=== PATIENT | female | born 1980 | race Caucasian/White ===

== ENCOUNTER → 2016-08-13 | Outpatient (CLI) | payer BC ==
[~2016-08-13] MED LIST: CYM60 PO; LEVOTAB3 PO
[2016-08-13 18:29] LABS: URINE APPEARANCE CLEAR (CLEAR); URINE BILIRUBIN NEG (NEG); URINE COLOR YELLOW; URINE NITRITE NEG (NEG); URINE SPECIFIC GRAVITY 1.012 (1.000-1.030); UROBILINOGEN NEG (NEG)
[2016-08-13 18:37] LABS: MANUAL MICROSCOPIC REQUIRED? NO; REVIEW REQ? NO
== END | disposition home or self-care (01) ==
LOC: C.LABSPEC 17:46
PROVIDERS: ATTEND Obstetrics & Gynecology
DX: O09.519 Supervision of elderly primigravida, unspecified trimester (principal); Z3A.00 Weeks of gestation of pregnancy not specified

== ENCOUNTER → 2016-08-21 | Outpatient (CLI) | payer BC | END | disposition home or self-care (01) | LOC: C.PAPS 08:47 | PROVIDERS: ATTEND Obstetrics & Gynecology | DX: Z01.419 Encounter for gynecological examination (general) (routine) without abnormal findings (principal) ==

== ENCOUNTER → 2016-08-21 | Outpatient (CLI) | payer BC ==
[2016-08-25 10:08] LABS: CHLAMYDIA TRACH RNA*** NOT DETECTED (NOT DETECTED); GC (NEIS GONORRHOEAE)RNA** NOT DETECTED (NOT DETECTED)
== END | disposition home or self-care (01) ==
LOC: C.LABSPEC 17:45
PROVIDERS: ATTEND Obstetrics & Gynecology
DX: O09.519 Supervision of elderly primigravida, unspecified trimester (principal); Z3A.00 Weeks of gestation of pregnancy not specified

== ENCOUNTER → 2016-08-21 | Outpatient (CLI) | payer BC ==
[2016-08-21 17:29] LABS: BASO % 0.4 %; BASO ABS # 0.03 K/uL (0-0.2); COMPLETE YES; EOS % 1.8 %; HEMATOCRIT 34.6 % (37-47); IG% 0.2 %; LYMPH ABS # 1.81 K/uL (1.2-3.4); MEAN CELL VOLUME 88.9 fL (80-100); MEAN CORPUSCULAR HEMOGLOBIN 30.6 pg (25-34); MEAN CORPUSCULAR HGB CONC 34.4 g/dl (32-36); MEAN PLATELET VOLUME 9.5 fL (7.4-10.4); MONO % 6.9 %; NEUT % 68.7 %; PLATELET COUNT 275 K/uL (130-400); RED BLOOD COUNT 3.89 M/uL (4.2-5.4); WHITE BLOOD COUNT 8.21 K/uL (4.8-10.8)
== END | disposition home or self-care (01) ==
LOC: C.LAB1850 16:43
PROVIDERS: ATTEND Obstetrics & Gynecology
DX: O09.519 Supervision of elderly primigravida, unspecified trimester (principal); Z3A.00 Weeks of gestation of pregnancy not specified

== ENCOUNTER → 2016-10-23 | Outpatient (CLI) | payer BC ==
[2016-10-23 18:19] LABS: GTGD 50 Grams
[2016-10-27 14:39] LABS: AFP CONCENTRATION 25.3 NG/ML; AFP MULTIPLE OF MEDIAN 0.65; AFPTS GESTATIONAL AGE 17.9 WEEKS; AFPTS INSULIN DEP DIABETIC? NO; AFPTS MATERNAL WT 166 LBS; ALPHA-FETOPROTEIN RACE CAUCASIAN=W; HISTORY OF NTD NO; REPEAT SAMPLE? NO
== END | disposition home or self-care (01) ==
LOC: C.LAB 17:18
PROVIDERS: ATTEND Obstetrics & Gynecology
DX: O09.511 Supervision of elderly primigravida, first trimester (principal); Z3A.00 Weeks of gestation of pregnancy not specified

== ENCOUNTER → 2017-01-05 | Outpatient (CLI) | payer BC ==
[2017-01-05 18:02] LABS: HEMATOCRIT 31.7 % (37-47)
[2017-01-05 18:28] LABS: GTGD 50 Grams
[2017-01-05 18:36] LABS: URINE APPEARANCE CLEAR (CLEAR); URINE BILIRUBIN NEG (NEG); URINE COLOR YELLOW; URINE NITRITE NEG (NEG); URINE SPECIFIC GRAVITY 1.014 (1.000-1.030); UROBILINOGEN NEG (NEG)
[2017-01-05 18:37] LABS: MANUAL MICROSCOPIC REQUIRED? NO; REVIEW REQ? NO
== END | disposition home or self-care (01) ==
LOC: C.LAB1850 17:06
PROVIDERS: ATTEND Obstetrics & Gynecology
DX: O09.513 Supervision of elderly primigravida, third trimester (principal); Z3A.00 Weeks of gestation of pregnancy not specified

== ENCOUNTER → 2017-02-27 | Outpatient (CLI) | payer BC | END | disposition home or self-care (01) | LOC: C.LABSPEC 17:28 | PROVIDERS: ATTEND Obstetrics & Gynecology | DX: O09.513 Supervision of elderly primigravida, third trimester (principal); Z3A.00 Weeks of gestation of pregnancy not specified ==

== ENCOUNTER 2017-03-20 05:33 | Inpatient (IN) | payer BC ==
[2017-03-19 15:01] VITALS: BMI 35.0
--- NOTE | 2017-03-19 15:10 | PAT Medication Instructions ---
Service Date Mar 19, 2017. Current Home Medication List Ferrous Sulfate (Iron (Ferrous Sulfate)), Unknown Dose PO QAM Multivit/Min/Iron/Fol Ac/Pren ( Vitamin), 1 TAB PO QAM [essential oil ], Unknown Dose UD Medication Instructions For Your Scheduled Surgery - Hold the following medications the morning of surgery: Ferrous Sulfate (Iron (Ferrous Sulfate)), Unknown Dose PO QAM Multivit/Min/Iron/Fol Ac/Pren ( Vitamin), 1 TAB PO QAM [essential oil ], Unknown Dose UD If you have any questions please call us at [phone] or [phone] or [phone]
[2017-03-19 15:46] LABS: BASO % 0.1 %; BASO ABS # 0.01 K/uL (0-0.2); EOS % 1.2 %; EOS ABS # 0.11 K/uL (0-0.5); HEMATOCRIT 30.1 % (37-47); HEMOGLOBIN 10.1 g/dL (12.0-16.0); IG# 0.07 K/uL (0.00-0.02); LYMPH % 15.9 %; LYMPH ABS # 1.48 K/uL (1.2-3.4); MEAN CELL VOLUME 89.3 fL (80-100); MEAN CORPUSCULAR HGB CONC 33.6 g/dl (32-36); MEAN PLATELET VOLUME 10.3 fL (7.4-10.4); MONO ABS # 0.65 K/uL (0.11-0.59); NEUT ABS # 6.98 K/uL (1.4-6.5); PLATELET COUNT 228 K/uL (130-400); RED CELL DISTRIBUTION WIDTH CV 15.2 % (11.5-14.5); RED CELL DISTRIBUTION WIDTH SD 48.7 fL (36.4-46.3)
--- NOTE | 2017-03-19 16:44 | HISTORY & PHYSICAL EXAMINATION ---
DATE OF ADMISSION: 03/20/2017 PREOPERATIVE HISTORY AND PHYSICAL ADMITTING DIAGNOSES: 1. Term . 2. Elderly primigravida. 3. Breech presentation. ADMISSION HISTORY: The patient is a 36-year-old 1, para 0 with an EDC of 27 March by dates and first trimester ultrasound who is admitted for primary section for breech presentation. The patient's breech presentation was diagnosed at 37 weeks gestational age. She declined external cephalic version and has opted for a primary section. The patient has had essentially an unremarkable course. She had cell-free DNA screening for advanced maternal age, which was within normal limits. Her blood type is A positive, antibody negative, rubella immune, hepatitis B negative. She is rubella equivocal. She had a normal 1 hour Glucola x2 and a negative third trimester beta strep culture. PAST MEDICAL HISTORY: OBSTETRICAL: As above. GYNECOLOGICAL: Cryosurgery 10 years ago. MEDICAL: Reactive airways disease, fibromyalgia. SURGICAL: [place] teeth extraction, breast biopsies x2. ALLERGIES: AVELOX. SOCIAL HISTORY: No smoking. FAMILY HISTORY: Noncontributory. REVIEW OF SYSTEMS: As per HPI. PHYSICAL EXAMINATION: GENERAL: Shows a gravid female in no acute distress. VITAL SIGNS: Blood pressure 126/80, height of 5 feet 5 inches, weight of 213 pounds. HEENT EXAMINATION: Unremarkable. NECK: Supple. LUNGS: Clear. HEART: With a regular rhythm and rate. ABDOMEN: Gravid, breech. Positive heart tones, estimated weight of 7.5 pounds. PELVIC: Deferred. EXTREMITIES: Shows no deep calf tenderness. NEUROLOGIC: Grossly intact. IMPRESSION: A 36-year-old 1, para 0 at 39 weeks gestational age for primary section for breech presentation. PLAN: The risks, benefits and alternatives to the surgery have been discussed. While the benefits will be delivery of the , the risks are bleeding, infection, inadvertent injury to bowel or bladder, blood clots and readmission and rehospitalization or reoperation. The patient understands that. Permit has been signed and she wishes to proceed.
[2017-03-20] VITALS (13 sets, daily range): BP systolic 126–136; BP diastolic 71–79; PULSE 85–108; TEMP 36.9–37.2; O2SAT 94–99; Ht 165.1 cm; Wt 96.7 kg
[~2017-03-20] VITALS: Ht 165.1 cm; Wt 96.7 kg
[~2017-03-20 05:33] MED LIST changes: -CYM60 PO; +ESSENTIAL OIL; +FAMO20TA9 PO; +FERR50TA3 PO; -LEVOTAB3 PO; +PRENTAB26 PO
[2017-03-20] MEDS ORDERED: LACTATED RINGER'S 1000ML 1,000 ML IV SCH ×3 (05:37→06:00)
[2017-03-20] MEDS ORDERED: CEFAZOLIN IV 2,000 MG in SYRINGE 0 ML IV SCH (06:00)
[2017-03-20] MEDS ORDERED: CITRIC ACID/SODIUM CITRATE 15 ML UDC PO SCH (06:00)
[2017-03-20 06:34] LABS: BASO % 0.2 %; BASO ABS # 0.02 K/uL (0-0.2); EOS % 1.2 %; EOS ABS # 0.11 K/uL (0-0.5); HEMATOCRIT 30.9 % (37-47); HEMOGLOBIN 10.1 g/dL (12.0-16.0); LYMPH ABS # 1.54 K/uL (1.2-3.4); MEAN CORPUSCULAR HEMOGLOBIN 29.1 pg (25-34); MEAN CORPUSCULAR HGB CONC 32.7 g/dl (32-36); MEAN PLATELET VOLUME 10.3 fL (7.4-10.4); MONO % 6.1 %; MONO ABS # 0.55 K/uL (0.11-0.59); NEUT % 74.4 %; NEUT ABS # 6.72 K/uL (1.4-6.5); PLATELET COUNT 227 K/uL (130-400); RED CELL DISTRIBUTION WIDTH CV 15.2 % (11.5-14.5); RED CELL DISTRIBUTION WIDTH SD 48.8 fL (36.4-46.3); WHITE BLOOD COUNT 9.04 K/uL (4.8-10.8)
[2017-03-20] MEDS ORDERED: OXYTOCIN INJ 10 UNITS/ML VIAL ONE ×2 (07:17)
[2017-03-20] MEDS ORDERED: MoRPHine SULFATE PF 1 MG/ML 10 ML AMP/VIAL ONE (07:18)
[2017-03-20] MEDS ORDERED: BUPIVACAINE 0.5 % 5 MG/1 ML PF 10ML VIAL ONE (07:20)
--- NOTE | 2017-03-20 07:22 | History & Physical Bridge Note ---
H&P Re-Evaluation Bridge Note: I have examined the patient, reviewed the History & Physical and in the interval since the performance of the History & Physical I have noted the following changes of clinical significance: No changes noted
[2017-03-20] MEDS ORDERED: NALOXONE HCL INJ 1 MG in SODIUM CHLORIDE 0.9% 1000ML 1,000 ML IV PRN (07:29)
[2017-03-20] MEDS ORDERED: SODIUM CHLORIDE 0.9% 1000ML 1,000 ML IV PRN (07:29)
[2017-03-20] MEDS ORDERED: NALOXONE HCL INJ 0.08 MG in SYRINGE 1.8 ML IV PRN (07:29)
[2017-03-20] MEDS ORDERED: LACTATED RINGER'S 1000ML 500 ML IV PRN (07:29)
[2017-03-20] MEDS ORDERED: EpHEDrine SULFATE INJ 50 MG/ML AMP IV PRN (07:30)
[2017-03-20] MEDS ORDERED: NO NARCOTICS OR SEDATIVES SCH (07:30)
[2017-03-20] MEDS ORDERED: MoRPHine SULFATE PF 1 MG/ML 10 ML AMP/VIAL EPI PRN (07:30)
[2017-03-20] MEDS ORDERED: ONDANSETRON INJ 2 MG/ML 2 ML VIAL IV PRN ×2 (07:30→08:30)
[2017-03-20] MEDS ORDERED: NALBUPHINE HCL INJ 10 MG/ML AMP IV PRN (07:30)
[2017-03-20] MEDS ORDERED: DiphenhydrAMINE HCL 50 MG/ML VIAL IV PRN ×2 (07:30→08:30)
[2017-03-20] MEDS ORDERED: NALOXONE HCL 0.4 MG/1 ML VIAL/CARP IV PRN (07:30)
[2017-03-20] MEDS ORDERED: MoRPHine SULFATE 2 MG/ML CARP IV PRN (07:30)
[2017-03-20] MEDS ORDERED: METHYLERGONOVINE MALEATE 0.2 MG/ML AMP ONE (08:12)
[2017-03-20] MEDS ORDERED: KETOROLAC TROMETHAMINE 30 MG/ML VIAL ONE (08:21)
[2017-03-20] MEDS ORDERED: EpHEDrine SULFATE 50MG/5ML SYR ONE (08:23)
[2017-03-20] MEDS ORDERED: PHENYLEPHRINE 100MCG/ML 5ML SYR ONE (08:23)
[2017-03-20] MEDS ORDERED: DIPHTHERIA/TETANUS/PERTUSSIS 0.5 ML SYR/VIAL IM. ONE (08:30)
[2017-03-20] MEDS ORDERED: BENZOCAINE 20% AER SPR 82.5 GM CAN EXT PRN (08:30)
[2017-03-20] MEDS ORDERED: SUPERCREAM 0.870 % 15GM JAR EXT PRN (08:30)
[2017-03-20] MEDS ORDERED: LANOLIN OINT EXT PRN (08:30)
[2017-03-20] MEDS ORDERED: HYDROCORTISONE ACETATE 25 MG SUPP PR PRN (08:30)
[2017-03-20] MEDS ORDERED: MEASLES, MUMPS & RUBELLA VIRUS VIAL SQ. ONE (08:30)
[2017-03-20] MEDS ORDERED: SENNA 8.6 MG TAB PO PRN (08:30)
--- NOTE | 2017-03-20 08:32 | [facility] Post Operative Brief Note ---
Immediate Operative Summary Operative Date Mar 20, 2017. Pre-Operative Diagnosis 1. Term 2. Elderly Primigravida 3. Breech Presentation Post-Operative Diagnosis same Procedure(s) Performed Primary lower uterine transverse caesarean section with the of a live female child at 0805. Surgeon Dr. Nesbitt Merchandise Planning Manager Surgeon(s) Dr. Mily Clark Estimated Blood Loss 800 ml Findings See Below (cord gasses pending) viavle female, Apgars 8/9, normal appearing tubea and ovaries, Specimens 1. Placenta- hold 2. Cord Blood 3. Cord Gases Drains [place] to gravity Anesthesia Type Spinal Complication(s) none Disposition Accompanied Pt To Recover: no Disposition: L&D
--- NOTE | 2017-03-20 08:45 | Anesthesiology Progress Note ---
Anesthesia Post Op Note Date & Time Mar 20, 2017 at 08:44 Notes Mental Status: alert / awake / arousable, participated in evaluation Pt Amnestic to Procedure: Yes Nausea / Vomiting: adequately controlled Pain: adequately controlled Airway Patency, RR, SpO2: stable & adequate BP & HR: stable & adequate Hydration State: stable & adequate Anesthetic Complications: no major complications apparent
[2017-03-20] MEDS ORDERED: METHYLERGONOVINE MALEATE 0.2 MG/ML AMP XX ONE (09:04)
--- NOTE | 2017-03-20 09:06 | OPERATIVE REPORT ---
DATE OF OPERATION: 03/20/2017 PREOPERATIVE DIAGNOSES: 1. Term . 2. Breech presentation. POSTOPERATIVE DIAGNOSES: Same. PROCEDURE PERFORMED: Primary low cervical transverse section. SURGEON: Lanre Nesbitt MD. ORGANIC SEARCH LEAD: Roxann Clark MD. ANESTHESIA: Spinal. FINDINGS: Viable female with Apgars of 8 and 9, delivered from a darell breech presentation. Cord gases are pending. Placenta delivered manually. Estimated blood loss 800 mL. LABOR NOTE: The patient was taken to the operating room and after spinal anesthesia, was placed in supine position and draped and prepped in the usual fashion. Pfannenstiel type incision was made. Underlying subcutaneous tissue was dissected down to the ventral abdominal fascia, which was nicked and opened in a horizontal manner. Preperitoneal fascia was dissected away until the peritoneal cavity was entered and opened in a vertical manner. Bladder blade was placed. The rectus muscles were in the proximal third bilaterally for more visualization and room to the uterus. The peritoneum overlying the uterus was elevated, opened in a semi-lunar fashion, the inferior margin of which was taken down creating the bladder flap. Uterus was entered sharply and extended in a semilunar fashion manually. Viable female was delivered. Cord was clamped and cut and the baby was passed off to pediatrics who was in attendance for the delivery. Cord gases, cord blood samples obtained. Placenta was delivered manually and the uterus was exteriorized. Uterine cavity was wiped clean of any residual blood tissue and/or clot. There was uterine atony, which was treated with Methergine 0.2 mg directly into the myometrium. Uterine incision was closed with 2 layers of 4-0 Vicryl, the first a running locking stitch, the second an imbricating stitch. Hemostasis was achieved and the uterus was returned to the pelvic cavity. The pericolic gutters were cleared bilaterally of any blood tissue and/or clot. The pelvis was then thoroughly irrigated with 500 mL of normal saline. Uterine incision was inspected again for hemostasis, which was present. Sponge and needle count was correct. The rectus muscles were plicated in the midline with a running 2-0 Vicryl stitch. The fascia was closed laterally to the midline from both sides with a running 0 Vicryl suture. Subcutaneous tissue was irrigated with warm saline and the skin incision was closed with a 4-0 Monocryl subcuticular suture. Sterile dressing was applied and the patient was taken to the recovery room in satisfactory condition. I attest to the content of the Intraoperative Record and any orders documented therein. Any exception s are noted below.
--- NOTE | 2017-03-20 09:14 | Discharge Instructions ---
Discharge Instructions Date of Service Mar 20, 2017. Admission Reason for Admission: Breech Presentation Discharge Discharge Diagnosis / Problem: Discharge Goals Goal(s): Routine recovery after Medications Continue Dispensed Medications: supercream, dermaplast, tucks, lansinoh Activity Recommendations Activity Limitations: per Instructions/Follow-up section . Instructions / Follow-Up Instructions / Follow-Up ACTIVITY RECOMMENDATIONS: * Gradual return to full activity over the next 2-3 weeks. * No lifting - nothing heavier than baby over the next 2-3 weeks. * Do not engage in vigorous exercise, sexual activity or sports until cleared by your physician. * Do not drive or operate any motorized equipment until cleared by your physician. * You may shower/bathe daily. MEDICATIONS: For discomfort or pain, you may use Acetaminophen (Tylenol), Ibuprofen (Advil), or Naproxen (Aleve) following the package directions. For constipation you may use Colace following the package directions. BREAST CARE: If you are not breast feeding: * Wear a supportive bra 24 hours a day for one to two weeks. * Avoid stimulating your breasts and nipples as much as possible during the first few weeks after delivery. * When taking a shower, have the warm water hit your back, not breasts. * When your breasts feel full, apply ice packs. Usually three to four times a day helps ease the discomfort. * Take a mild pain medication (Tylenol / Motrin) when you are uncomfortable. If breast feeding: * Use breast milk to lubricate nipples. Lansinoh cream may be used for sore nipples. You do not need to remove cream prior to breast feeding. If using a different brand of cream, check the label for directions regarding removal of cream prior to nursing. * Wear a supportive bra. * If having problems with breasts or breast feeding, call a corporate learning consultant or your health care provider. SPECIAL CARE INSTRUCTIONS: When you are discharged from the hospital, it is important for you to follow the instructions listed below: * During the first week at home, you should be able to care for yourself and your baby. In addition, the usual light household activities are encouraged. * Limit your activities to the way you feel. Do not try to clean the house or move furniture. Be sensible. * If you actively engage in sports and have done so up until the time of your delivery, you may resume these activities as soon as you feel able. This may take up to one month or even longer. Use good judgment. * Continue to take your vitamins for at least six weeks after the of your baby. * Your diet need not be limited unless you were on a special diet before your delivery. Breast-feeding mothers need around 2500 calories per day and at least 64-80 ounces of fluid per day (8 to 10 glasses). * You should eat foods from the four major food groups. Crash diets or fad diets are to be avoided. Eating lean meats, fresh fruits and vegetables, low-fat dairy products, high fiber foods and a regular exercise program, will help you get back to your pre- weight without putting your health at risk. * Constipation is sometimes a problem after delivery. Take a mild laxative as needed. If breast feeding, Milk of Magnesia is acceptable to use. You may use a suppository or Fleets enema. * A daily shower or tub bath is suggested. Wash incision daily with warm soapy water and pat dry. It doesn't need to be covered unless drainage is present. * A bloody vaginal discharge will usually continue until around four weeks . A small amount of bleeding may continue for as long as six weeks. Vaginal discharge changes from the bright red bleeding after delivery to pink then brownish and finally yellowish-pink before becoming white and disappearing. * Bleeding may increase with activity. Your first period may come in 4-8 weeks. If you are breast feeding, your period may be delayed even longer. * [place] (sex) can begin whenever both you and your partner feel comfortable and do not have any form of genital infection. It is recommended that you wait at least six weeks for internal and external healing to occur. If you have questions, please talk to your health care practitioner. A condom should be used to prevent infection and . * Foreplay, gentle intercourse and lubrication is very important the first several times to prevent pain. A water-based lubricant such as K-Y jelly or Astroglide may be used. * If you have RH negative blood and your baby is RH positive, you will receive RHOGAM by injection prior to discharge. The nurse will give you a card to keep with you that has the date and place that you received RHOGAM after delivery. * During your care, you had a Rubella screen done to check for the presence of rubella antibodies in your blood. If your test was negative, you will receive a Rubella vaccine prior to discharge. This vaccine may cause a fever, soreness at the injection site and flu-like symptoms. If these symptoms persist, notify your health care practitioner. is not advised for one month after a Rubella vaccine. * Verbalizes understanding of car seat law as reviewed with patient nursing. * Car Seat hand-out given and reviewed with patient by nursing. * Shaken baby information reviewed with patient by nursing. Call you doctor if: * Heavy bleeding (saturating several pads an hour) or passing clots the size of your fist. * A fever >101 degrees F (38.3 degrees C) on two occasions four hours apart and /or chills. * Unusual pain in the pelvic or vaginal areas. * Call the doctor for any increased redness, drainage or swelling around the incision and any pain unrelieved by prescribed pain medication. * "Baby Blues" lasting longer than two weeks. If you have any questions or concerns, call your health care practitioner at . FOLLOW UP VISIT: * Please call the office at to schedule a 6 week examination. It is important you keep this appointment. It is important for you to make arrangements for either yearly or twice yearly check-ups thereafter. Current Hospital Diet Patient's current hospital diet: Discharge Diet Recommended Diet: Regular Diet Procedures Procedures Performed: Primary lower uterine transverse caesarean section with the of a live female child at 0805. Pending Studies Studies pending at discharge: no Medical Emergencies . Who to Call and When: Medical Emergencies: If at any time you feel your situation is an emergency, please call [phone] immediately. . Non-Emergent Contact Non-Emergency issues call your: Primary Care Provider . . "Provider Documentation" section prepared by Calvin Mac. . VTE Core Measure Inpt VTE Proph given/why not?: SCD's
[2017-03-20] MEDS: OXYTOCIN INJ 20 UNITS in LACTATED RINGER'S 1000ML 1,000 ML IV SCH ×2 (11:03→19:58)
[2017-03-20] MEDS: KETOROLAC TROMETHAMINE 30 MG/ML VIAL IV. PRN ×2 (14:45→22:18)
[2017-03-20] MEDS ORDERED: KETOROLAC TROMETHAMINE 30 MG/ML VIAL IV. PRN (23:30)
[2017-03-20] MEDS ORDERED: DC INTRASPINAL MORPHINE SCH (23:30)
[2017-03-20] MEDS ORDERED: OXYCODONE/ACETAMINOPHEN 5-325 TAB PO PRN (23:30)
[2017-03-21 03:35] VITALS: BP 134/82; PULSE 106; TEMP 37
[2017-03-21] MEDS: IBUPROFEN 600 MG TAB PO PRN ×4 (04:07→19:56)
[2017-03-21] MEDS: OXYCODONE/ACETAMINOPHEN 5-325 TAB PO PRN ×4 (04:08→19:56)
--- NOTE | 2017-03-21 06:22 | Progress Note ---
Subjective Mar 21, 2017. Subjective conversation w/ patient (Patient was seen and examined at bedside) Ambulation: limited ambulation Voiding: no voiding problems Passing Gas: Yes Diet Tolerance: Regular Diet Lochia: Moderate Feeding Type: Breast Feeding Pain: /, confined to incision and improved with analgesia Review of Systems Constitutional: + problem reported (sore throat - improving from yesterday), No fever, No chills Respiratory: No cough, No shortness of breath Cardiac: + edema (bilateral pedal edema), No chest pain Abdomen: No nausea, No vomiting Female : No dysuria Objective Vital Signs Date Time Temp Pulse Resp B/P (MAP) Pulse Ox O2 Delivery O2 Flow Rate FiO2 03/21/17 03:35 37.0 106 18 134/82 (99) Room Air 03/20/17 23:25 96 Room Air 03/20/17 23:25 37.2 103 18 126/71 (89) Room Air 03/20/17 23:25 18 96 03/20/17 21:30 16 95 03/20/17 20:30 16 96 03/20/17 20:30 37.1 108 16 131/76 (94) 96 Room Air 03/20/17 19:30 20 98 03/20/17 18:30 16 97 03/20/17 17:30 16 94 03/20/17 16:30 18 95 03/20/17 15:30 20 95 03/20/17 15:30 37.0 101 20 136/76 (96) 95 Room Air 03/20/17 15:30 95 Room Air 03/20/17 14:00 18 99 03/20/17 13:00 18 98 03/20/17 12:00 18 98 03/20/17 11:15 36.9 85 18 136/79 (98) 99 Room Air 03/20/17 11:15 Room Air 03/20/17 11:15 99 Room Air 03/20/17 11:00 18 99 Physical Exam General Appearance: WELL-APPEARING, WD/WN, NO APPARENT DISTRESS Respiratory/Chest: lungs clear, normal breath sounds Cardiovascular: regular rate, rhythm Abdomen: soft Fundus: Firm, Non-Tender, Relation to Umbilicus (at u) Incision Description: Clean, Dry & Intact Extremities: no calf tenderness, + pedal edema Laboratory Results Last 24 Hours Test 03/20/17 06:25 03/21/17 06:00 White Blood Count 9.04 K/uL Red Blood Count 3.47 M/uL Hemoglobin 10.1 g/dL Hematocrit 30.9 % Mean Corpuscular Volume 89.0 fL Mean Corpuscular Hemoglobin 29.1 pg Mean Corpuscular Hemoglobin Concent 32.7 g/dl Platelet Count 227 K/uL Mean Platelet Volume 10.3 fL Neutrophils (%) (Auto) 74.4 % Lymphocytes (%) (Auto) 17.0 % Monocytes (%) (Auto) 6.1 % Eosinophils (%) (Auto) 1.2 % Basophils (%) (Auto) 0.2 % Neutrophils # (Auto) 6.72 K/uL Lymphocytes # (Auto) 1.54 K/uL Monocytes # (Auto) 0.55 K/uL Eosinophils # (Auto) 0.11 K/uL Basophils # (Auto) 0.02 K/uL RDW Standard Deviation 48.8 fL RDW Coefficient of Variation 15.2 % Immature Granulocyte % (Auto) 1.1 % Immature Granulocyte # (Auto) 0.10 K/uL Medications Current Inpatient Medications Medications (Trade) Dose Ordered Sig/Jules Route Start Time Stop Time Status Last Admin Dose Admin Ketorolac Tromethamine (Toradol Inj) 30 mg Q6H PRN IV. 03/20/17 23:30 03/25/17 23:29 Oxycodone/ Acetaminophen (Percocet 5-325mg Tab) 1 tab Q4H PRN PO 03/20/17 23:30 04/03/17 23:29 03/21/17 04:08 1 TAB Oxycodone/ Acetaminophen (Percocet 5-325mg Tab) 2 tab Q4H PRN PO 03/20/17 23:30 04/03/17 23:29 Ibuprofen (Motrin Tab) 600 mg Q4H PRN PO 03/20/17 08:30 04/19/17 08:29 03/21/17 04:07 600 MG Ondansetron HCl (Zofran Inj) 4 mg Q4H PRN IV 03/20/17 08:30 04/19/17 08:29 Future hold Prenat Multivit/ [place]/Iron/Folic Ac ( Vitamin Tab) 1 tab DAILY PO 03/21/17 08:00 04/20/17 07:59 Bisacodyl (Dulcolax Tab) 5 mg HS ONCE PO 03/21/17 22:00 03/21/17 22:01 Bisacodyl (Dulcolax Supp) 10 mg PRN PRN AR 03/22/17 08:30 03/22/17 23:59 Magnesium Hydroxide (Milk Of Magnesia Susp) 30 ml HS PO 03/21/17 22:00 04/20/17 21:59 Cocaine HCl (Supercream 0.870% Cr) BID PRN EXT 03/20/17 08:30 04/03/17 08:29 Lanolin (Lanolin Oint) PRN PRN EXT 03/20/17 08:30 04/19/17 08:29 Hydrocortisone Acetate (Anusol Hc Supp) 25 mg BID PRN AR 03/20/17 08:30 04/19/17 08:29 Benzocaine (Dermoplast Aero Spr) 1 appln PRN PRN EXT 03/20/17 08:30 04/19/17 08:29 Diphenhydramine HCl (Benadryl Cap) 25 mg QID PRN PO 03/20/17 08:30 04/19/17 08:29 Future hold Diphenhydramine HCl (Benadryl Inj) 25 mg QID PRN IV 03/20/17 08:30 04/19/17 08:29 Future hold Senna (Senokot Tab) 17.2 mg HS PRN PO 03/20/17 08:30 04/19/17 08:29 Assessment and Plan Post-Op Day#: 1 Continue Routine Care: 36 year old s/p for breech delivery day 1 - patient doing well clinically - A+, rubella equivocal, GBS -ve - MMR ordered - continue to encourage ambulation and - analgesia prn - advancing diet to full for breakfast - monitor sore throat - likely due to dryness and already improving - vitals reviewed - slightly tachycardic at 106 w/mildly elevated BP at 134/82, will continue to monitor - Hgb 10.1 prior to c/s, will review when labs available Resident Tracking Resident Involvement: Resident Care Provided Care Provided: OB Delivery
[2017-03-21 06:45] LABS: HEMATOCRIT 25.7 % (37-47); HEMOGLOBIN 8.6 g/dL (12.0-16.0); MEAN CELL VOLUME 89.2 fL (80-100); MEAN CORPUSCULAR HEMOGLOBIN 29.9 pg (25-34); MEAN CORPUSCULAR HGB CONC 33.5 g/dl (32-36); MEAN PLATELET VOLUME 10.4 fL (7.4-10.4); PLATELET COUNT 221 K/uL (130-400); RED CELL DISTRIBUTION WIDTH CV 15.6 % (11.5-14.5); RED CELL DISTRIBUTION WIDTH SD 50.5 fL (36.4-46.3); WHITE BLOOD COUNT 10.65 K/uL (4.8-10.8)
[2017-03-21 07:10] LABS: BASO % 0.1 %; BASO ABS # 0.01 K/uL (0-0.2); EOS % 0.8 %; EOS ABS # 0.08 K/uL (0-0.5); IG# 0.07 K/uL (0.00-0.02); LYMPH % 8.5 %; LYMPH ABS # 0.91 K/uL (1.2-3.4); MONO ABS # 0.64 K/uL (0.11-0.59); NEUT % 83.9 %; NEUT ABS # 8.94 K/uL (1.4-6.5)
[2017-03-21] MEDS ORDERED: PRENATAL VITAMIN TAB PO SCH (08:00)
[2017-03-21 08:45] VITALS: BP 131/80; PULSE 108; TEMP 37.4
[2017-03-21] MEDS: DOCUSATE SODIUM 100 MG CAP PO SCH ×2 (09:32→19:39)
[2017-03-21] MEDS: PRENATAL VITAMIN TAB PO SCH (09:32)
[2017-03-21 15:30] VITALS: BP 125/78; PULSE 108; TEMP 36.8
[2017-03-21] MEDS ORDERED: BISACODYL 5 MG TABEC PO ONE (22:00)
[2017-03-21] MEDS: MAGNESIUM HYDROXIDE SUSP 30 ML UDC PO SCH (22:09)
[2017-03-21 23:35] VITALS: BP 125/77; PULSE 101; TEMP 37
[2017-03-22] MEDS: OXYCODONE/ACETAMINOPHEN 5-325 TAB PO PRN ×4 (03:15→21:18)
[2017-03-22] MEDS: IBUPROFEN 600 MG TAB PO PRN ×4 (03:15→21:18)
[2017-03-22 06:25] LABS: HEMATOCRIT 24.7 % (37-47); HEMOGLOBIN 8.2 g/dL (12.0-16.0)
[2017-03-22 07:24] VITALS: BP 135/84; PULSE 94; TEMP 36.7
--- NOTE | 2017-03-22 07:37 | Progress Note ---
Subjective Mar 22, 2017. Subjective conversation w/ patient, conversation w/ family Ambulation: ambulating normally Voiding: no voiding problems Diet Tolerance: Regular Diet Feeding Type: Breast Feeding Objective Vital Signs Date Time Temp Pulse Resp B/P (MAP) Pulse Ox O2 Delivery O2 Flow Rate FiO2 03/22/17 07:24 36.7 94 16 135/84 (101) Room Air 03/21/17 23:35 Room Air 03/21/17 23:35 37.0 101 18 125/77 (93) Room Air 03/21/17 15:30 36.8 108 16 125/78 (94) Room Air 03/21/17 15:30 Room Air 03/21/17 08:45 37.4 108 16 131/80 (97) Room Air 03/21/17 08:45 Room Air Physical Exam General Appearance: WELL-APPEARING, NO APPARENT DISTRESS Respiratory/Chest: lungs clear Cardiovascular: regular rate, rhythm Fundus: Firm, Non-Tender Incision Description: Clean, Dry & Intact, Ecchymosis (slight) Extremities: no calf tenderness Laboratory Results Last 24 Hours Test 03/22/17 05:59 Hemoglobin 8.2 g/dL Hematocrit 24.7 % Assessment and Plan Post-Op Day#: 2 Continue Routine Care: - doing well - continue to ambulate - routine care
[2017-03-22] MEDS ORDERED: OXYC-57 PO (07:38)
[2017-03-22] MEDS ORDERED: MTR600X PO (07:38)
[2017-03-22] MEDS: PRENATAL VITAMIN TAB PO SCH (08:06)
[2017-03-22] MEDS: DOCUSATE SODIUM 100 MG CAP PO SCH ×2 (08:06→21:16)
[2017-03-22] MEDS: SIMETHICONE 80 MG CHEW PO PRN ×2 (08:08→21:16)
[2017-03-22] MEDS ORDERED: BISACODYL 10 MG SUPP PR PRN (08:30)
[2017-03-22 16:15] VITALS: BP 122/83; PULSE 98; TEMP 36.1; O2SAT 96
[2017-03-22] MEDS: MAGNESIUM HYDROXIDE SUSP 30 ML UDC PO SCH (22:00)
[2017-03-22] MEDS ORDERED: ZOLPIDEM TARTRATE 10 MG TAB PO SCH (22:00)
[2017-03-22] MEDS ORDERED: NURSING VERBAL MED ORDER ONE (22:15)
[2017-03-22 22:45] VITALS: BP 125/82; PULSE 89; TEMP 36.7; O2SAT 96
[2017-03-23] MEDS: OXYCODONE/ACETAMINOPHEN 5-325 TAB PO PRN ×3 (03:44→12:53)
[2017-03-23] MEDS: IBUPROFEN 600 MG TAB PO PRN ×3 (03:44→12:54)
--- NOTE | 2017-03-23 06:18 | Progress Note ---
Subjective Mar 23, 2017. Subjective conversation w/ patient (Patient seen and examined at bedside) Ambulation: ambulating normally Voiding: no voiding problems Passing Gas: Yes Diet Tolerance: Regular Diet Lochia: Moderate Feeding Type: Breast Feeding (and pumping) Pain: 7/10 over incision with movement, improved with analgesia Review of Systems Constitutional: No fever, No chills Respiratory: No shortness of breath Cardiac: No chest pain Abdomen: No pain, No nausea, No vomiting, No diarrhea, No constipation Female : No dysuria Objective Vital Signs Date Time Temp Pulse Resp B/P (MAP) Pulse Ox O2 Delivery O2 Flow Rate FiO2 03/22/17 22:45 96 Room Air 03/22/17 22:45 36.7 89 20 125/82 (96) Room Air 03/22/17 16:15 Room Air 03/22/17 16:15 36.1 98 18 122/83 (96) 96 Room Air 03/22/17 08:00 Room Air 03/22/17 07:24 36.7 94 16 135/84 (101) Room Air Physical Exam General Appearance: WELL-APPEARING, WD/WN, NO APPARENT DISTRESS Respiratory/Chest: lungs clear, normal breath sounds Cardiovascular: regular rate, rhythm Abdomen: non tender, soft Fundus: Firm, Non-Tender, Relation to Umbilicus (1 below) Incision Description: Clean, Dry & Intact Extremities: no calf tenderness Medications Current Inpatient Medications Medications (Trade) Dose Ordered Sig/Jules Route Start Time Stop Time Status Last Admin Dose Admin Ketorolac Tromethamine (Toradol Inj) 30 mg Q6H PRN IV. 03/20/17 23:30 03/25/17 23:29 Oxycodone/ Acetaminophen (Percocet 5-325mg Tab) 1 tab Q4H PRN PO 03/20/17 23:30 04/03/17 23:29 03/23/17 03:44 1 TAB Oxycodone/ Acetaminophen (Percocet 5-325mg Tab) 2 tab Q4H PRN PO 03/20/17 23:30 04/03/17 23:29 Ibuprofen (Motrin Tab) 600 mg Q4H PRN PO 03/20/17 08:30 04/19/17 08:29 03/23/17 03:44 600 MG Ondansetron HCl (Zofran Inj) 4 mg Q4H PRN IV 03/20/17 08:30 04/19/17 08:29 Future hold Prenat Multivit/ [place]/Iron/Folic Ac ( Vitamin Tab) 1 tab DAILY PO 03/21/17 08:00 04/20/17 07:59 03/22/17 08:06 1 TAB Magnesium Hydroxide (Milk Of Magnesia Susp) 30 ml HS PO 03/21/17 22:00 04/20/17 21:59 03/21/17 22:09 30 ML Cocaine HCl (Supercream 0.870% Cr) BID PRN EXT 03/20/17 08:30 04/03/17 08:29 Lanolin (Lanolin Oint) PRN PRN EXT 03/20/17 08:30 04/19/17 08:29 Hydrocortisone Acetate (Anusol Hc Supp) 25 mg BID PRN SD 03/20/17 08:30 04/19/17 08:29 Benzocaine (Dermoplast Aero Spr) 1 appln PRN PRN EXT 03/20/17 08:30 04/19/17 08:29 Diphenhydramine HCl (Benadryl Cap) 25 mg QID PRN PO 03/20/17 08:30 04/19/17 08:29 Future hold Diphenhydramine HCl (Benadryl Inj) 25 mg QID PRN IV 03/20/17 08:30 04/19/17 08:29 Future hold Senna (Senokot Tab) 17.2 mg HS PRN PO 03/20/17 08:30 04/19/17 08:29 Docusate Sodium (coLACE CAP) 100 mg BID PO 03/21/17 08:00 04/20/17 07:59 03/22/17 21:16 100 MG Simethicone (Mylicon Chew Tab) 80 mg Q6H PRN PO 03/21/17 07:15 04/20/17 07:14 03/22/17 21:16 80 MG Zolpidem Tartrate (Ambien Tab) 10 mg HSZ PO 03/22/17 22:00 04/21/17 21:59 03/22/17 22:19 10 MG Assessment and Plan Post-Op Day#: 3 Continue Routine Care: 36 year old s/p for breech delivery day 3 - patient doing well clinically - A+, rubella equivocal, GBS -ve - MMR ordered - continue to encourage ambulation and - analgesia prn - vitals reviewed and wnl - Hgb 10.1 -> 8.2 - will review d/c instructions as pt ready for d/c today Resident Physician Supervision Note: I interviewed and examined the patient. Discussed with Dr. Mac and agree with findings and plan as documented in the note. Any exceptions or clarifications are listed here: D/C instruction reviewed Documented By: Lanre Nesbitt Resident Tracking Resident Involvement: Resident Care Provided Care Provided: OB Delivery
--- NOTE | 2017-03-23 07:17 | DISCHARGE SUMMARY ---
ADMITTING DIAGNOSES: 1. Term . 2. Elderly primigravida. 3. Breech presentation. DISCHARGE DIAGNOSES: Same. PROCEDURES PERFORMED: Primary low cervical transverse section. DISCHARGE MEDICATIONS: 1. Percocet 5/325 1-2 p.o. q. 4-6 hours p.r.n. pain. 2. Motrin 600 mg p.o. q. 6 hours p.r.n. pain. ADMISSION HISTORY: The patient is a 36-year-old 1, para 0 with an EDC of 03/27/2017 by dates and first trimester ultrasound who is admitted for primary section for breech presentation. The patient's breech presentation was diagnosed at 37 weeks gestational age. She declined external cephalic version and has opted for primary section. The patient has had an unremarkable course. She had cell-free DNA screening for advanced maternal age, which was within normal limits. Her blood type is A positive, antibody negative, rubella nonimmune, hepatitis B negative. She had a normal 1-hour Glucola and a negative third trimester beta strep culture. PHYSICAL EXAMINATION: GENERAL: Shows a pleasant gravid female in no acute distress. VITAL SIGNS: Blood pressure 126/80, height of 5 feet 5 inches and weight of 213 pounds. HEENT: Unremarkable. NECK: Supple. LUNGS: Clear. HEART: With a regular rhythm and rate. ABDOMEN: Gravid, breech. Positive heart tones, estimated weight of 7-1/2 pounds. PELVIC: Deferred. EXTREMITIES: Showed no deep calf tenderness. NEUROLOGIC: Grossly intact. ADMISSION LABORATORY VALUES: Showed an H&H of 10.1 and 30.9. HOSPITAL COURSE: On day of admission, patient was taken to the operating room where she underwent the above listed procedures. Operative findings showed a viable female with Apgars of 8 and 9, delivered from a darell breech presentation. Normal appearing tubes and ovaries bilaterally. Postoperatively, the patient did well. Padgett catheter was removed on the first postoperative day. H&H came back at 8.6 and 25.7. By the 3rd postoperative day, the patient was ambulating without difficulty and tolerating a regular diet. She was discharged home with routine discharge instructions and the prescriptions for the medications as listed as above. She will follow up in the office in 2 weeks' time for a postop check but as always she has been instructed to call with any questions, problems or difficulties.
[2017-03-23 07:29] VITALS: BP 129/84; PULSE 100; TEMP 36.8; O2SAT 96
[2017-03-23] MEDS: PRENATAL VITAMIN TAB PO SCH (08:38)
[2017-03-23] MEDS: DOCUSATE SODIUM 100 MG CAP PO SCH (08:38)
[2017-03-23] MEDS: SIMETHICONE 80 MG CHEW PO PRN ×2 (09:10→12:52)
[2017-03-23 10:26] VITALS: O2SAT 96
[2017-03-23 13:30] VITALS: BP_DIAS 84; PULSE 100; TEMP 36.8
== END 2017-03-23 13:30 | disposition home or self-care (01) | DRG 766 ==
LOC: C.LD 05:33 → EDSTATUS 13:38 → C.OBG 14:10
PROVIDERS: ADMIT Obstetrics & Gynecology; ATTEND Obstetrics & Gynecology
PROC: 10D00Z1 Extraction of Products of Conception, Low, Open Approach (ICD-10-PCS; principal; 2017-03-20 07:30)
DX: O32.1XX0 Maternal care for breech presentation, not applicable or unspecified (principal); O09.513 Supervision of elderly primigravida, third trimester; Z3A.39 39 weeks gestation of pregnancy; Z37.0 Single live birth

== ENCOUNTER 2017-03-26 15:52 | Emergency (ER) | payer BC ==
[~2017-03-26] VITALS: Ht 165.1 cm; Wt 85.6 kg
[~2017-03-26 15:52] MED LIST changes: +MTR600X PO; +OXYC-57 PO
[2017-03-26 16:06] VITALS: Ht 165.1 cm; Wt 85.6 kg
[2017-03-26] MEDS ORDERED: LIDO/EPINEPHRINE/SOD BICARB 20 ML VIAL INFIL ONE (16:33)
--- NOTE | 2017-03-26 17:25 | Discharge Instructions ---
Discharge Instructions Date of Service Mar 26, 2017. 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 Instructions / Follow-Up Instructions / Follow-Up ACTIVITY RECOMMENDATIONS: * Avoid tampons, douching, hot tubs, pools, and intercourse until bleeding has stopped. * May shower as usual. * . SPECIAL CARE INSTRUCTIONS: Special Diet: * Mild nausea may occur in the immediate post-operative period. * Take clear liquids such as tea, cola or bouillon until all nausea has subsided; you may then resume your normal diet. Special Care: * Light bleeding and vaginal spotting can last from a few days to 3-4 weeks. Call your doctor if bleeding becomes heavier than the heaviest part of your period. * Check your temperature twice a day for one week. If it goes above 100.4 degrees Fahrenheit (38.0 Celsius), notify your doctor. * Call your doctor's office for an appointment for 6 weeks after your surgery. FOLLOW-UP VISIT: Keep you scheduled appointment for 04/09/17 week Current Hospital Diet Patient's current hospital diet: Discharge Diet Recommended Diet: Regular Diet Procedures Procedures Performed: Drainage of hematoma Pending Studies Studies pending at discharge: no Medical Emergencies . Who to Call and When: Medical Emergencies: If at any time you feel your situation is an emergency, please call 911 immediately. . Non-Emergent Contact Non-Emergency issues call your: Trolley Operator Call Non-Emergent contact if: temperature is above 100.5, your pain is worsening, wound has increased drainage . . "Provider Documentation" section prepared by Lnare Nesbitt. . VTE Core Measure Inpt VTE Proph given/why not?: Treatment not indicated
[2017-03-26 17:35] VITALS: BP 127/87; PULSE 98; TEMP 36.9; O2SAT 96
--- NOTE | 2017-03-26 18:17 | HISTORY & PHYSICAL EXAMINATION ---
DATE OF ADMISSION: 03/26/2017 EMERGENCY ROOM NOTE REASON FOR VISIT: Vulvar mass. NOTE: The patient is a 36-year-old 1, para 1 who is status post a primary section 1 week ago for breech presentation, who presented to the Emergency Room for evaluation of a vulvar mass. The patient took a bath earlier this evening and afterward felt a lump in the right vulvar area. This was acute and tender to palpation. The patient denied any drainage or fever. The patient has never had anything like this previously. The patient was evaluated in the office initially and the diagnosis of a Bartholin's abscess or cyst was made. Attempted I&D in the office was unsuccessful and the patient was sent to the emergency room for further evaluation. PHYSICAL EXAMINATION: GENERAL: A pleasant female in no acute distress. VITAL SIGNS: Blood pressure 127/87, temperature 36.9. ABDOMEN: Soft, nontender. Well healing Pfannenstiel-type incision. PELVIC: A 5-7 cm cystic lesion in the area of the right Bartholin's which was mobile, tender, did not appear to be acutely infected. PROCEDURE NOTE: After obtaining verbal consent from the patient, the area was cleansed with Betadine. It was injected with 1% lidocaine solution with epinephrine. A 4 cm linear incision on the right labia majora was made and dissected into the mass. Approximately 50 mL of clotted blood was removed from the mass with no evidence of purulent fluid. Cavity was completely evacuated. A Word catheter was inserted into the defect and insufflated with 3 mL of saline. The incision was then closed with interrupted 2-0 chromic sutures. The patient tolerated the procedure well. IMPRESSION: A 36-year-old G1, P1 with acute vulvar hematoma. PLAN: Etiology of the hematoma is unclear. Whatever it was, it did occur acutely but most likely was some type of drainage from her section. There was no discoloration of the skin to indicate an extended period of time. The fluid removed was clotted blood and was not purulent. There was no fever and so the patient was not given antibiotics. The patient will soak t.i.d. in Sitz baths and will use her prescription for Motrin and Percocet from the section as needed. The patient will follow up in the office as scheduled on 04/09/2017 for evaluation and removal of the catheter. The patient has been instructed to call with any questions, problems or difficulties.
== END 2017-03-26 17:36 | disposition home or self-care (01) ==
LOC: C.EDB 15:54 → C.EDD 17:36
DX: N90.89 Other specified noninflammatory disorders of vulva and perineum (principal)

== ENCOUNTER 2017-03-30 14:16 | Emergency (ER) | payer BC ==
[~2017-03-30] VITALS: Ht 165.1 cm; Wt 85.0 kg
[2017-03-30 14:19] VITALS: TEMP 36.9; Ht 165.1 cm; Wt 85.0 kg
[2017-03-30] MEDS ORDERED: OXYC-57 PO ×2 (14:41→15:13)
[2017-03-30] MEDS ORDERED: FERR1TAB13 PO (14:41)
[2017-03-30] MEDS ORDERED: PRENTAB26 PO (14:41)
[2017-03-30] MEDS ORDERED: DOCU-94 PO (14:41)
[2017-03-30] MEDS ORDERED: IBUP-1450 PO (14:41)
--- NOTE | 2017-03-30 15:12 | Discharge Instructions ---
Discharge Instructions Date of Service Mar 30, 2017. Visit Reason for Visit: Need Blood Drained From Csection Discharge Discharge Diagnosis / Problem: vulvar hematoma Discharge Goals Goal(s): Decrease discomfort, Improve function Activity Recommendations Activity Limitations: resume your previous activity per previous instructions. Anesthesia . Post Anesthesia Instructions: If you have had General Anesthesia or IV Sedation: * Do not drive today. * Resume driving when surgeon permits. * Do not make important decisions or sign legal documents today. * Call surgeon for: 1. Temperature elevations greater than 101 degrees F. 2. Uncontrollable pain. 3. Excessive bleeding. 4. Persistent nausea and vomiting. 5. Medication intolerance (nausea, vomiting or rash). * For nausea and vomiting use only clear liquids such as: tea, soda, bouillon until nausea subsides, then gradually increase diet as tolerated. * If you have any concerns or questions, call your surgeon's office. If physician is unavailable and it is an emergency, call 911 or go to the nearest emergency room. . Instructions / Follow-Up Instructions / Follow-Up per previous instructions Sitz baths twice daily f/u in the office on Thursday Diet Recommendations Recommended Home Diet: no limitations, resume previous diet Pending Studies Studies pending at discharge: no Medical Emergencies . Who to Call and When: Medical Emergencies: If at any time you feel your situation is an emergency, please call 911 immediately. . Non-Emergent Contact Non-Emergency issues call your: Director [employer] . . "Provider Documentation" section prepared by Melonie Cabral. . [place] Drug Monitoring Program Search Results: patient reviewed within database, no issues identified
[2017-03-30 15:19] VITALS: BP 129/76; PULSE 100; O2SAT 97
--- NOTE | 2017-03-30 15:33 | History and Physical ---
History & Physical Date & Time of Service: Mar 30, 2017 at 15:22 Chief Complaint: Need Blood Drained From Csection Primary Care Physician: Carolyne Delacruz History of Present Illness Source: patient, spouse Patient is a 36yowf who had c/s for breech on 03/20. Patient's surgery was uncomplicated and was d/c home. She represented to the ED on 03/26 and was diagnosed with a vulvar hematoma that was drained by Dr. Nesbitt and a Word catheter was placed. Was d/c home with Sitz baths TID and to f/u On 04/09. Patient called the office today noting that she still had a lot of pain at the area. She notes it feels very irritated and is still swollen. She is concerned that it may be filling up with blood again. She was advised to present to the ED in case she needed possible surgical intervention. She notes no fever, chills, nausea or vomiting. she has been taking percocet at home for pain with ibuprofen without alot of relief. Past Medical/Surgical History Medical Problems: (1) Cat bite Status: Resolved (2) Cat bite Status: Resolved (3) Need for post exposure prophylaxis for rabies Status: Resolved (4) Need for post exposure prophylaxis for rabies Status: Resolved PMhx--Reactive airway disease, fibromyalgia Psx hx--oral, breast biopsy x 2, drainage of vulvar hematoma Social History Smoking Status: Former Smoker Alcohol Use: socially Drug Use: none Marital Status: Housing status: lives with family Occupational Status: employed Multi-Drug Resistant Organisms History of MDRO: No Allergies Coded Allergies: Moxifloxacin (Verified Allergy, Intermediate, can't talk, 03/30/17) Home Medications Scheduled Docusate Sodium (Colace), 1 CAP PO DAILY Ferrous Sulfate (Kp Ferrous Sulfate), 1 TAB PO DAILY Multivit/Min/Iron/Fol Ac/Pren ( Vitamin), 1 TAB PO DAILY Scheduled PRN Ibuprofen (Motrin), 600 MG PO Q4 PRN for VICKERS, CRAMPING, FEVER Oxycodone/Acetaminophen 5MG/325MG (Percocet 5MG/325MG), 1 TABLET PO Q4H PRN for Pain Oxycodone/Acetaminophen 5MG/325MG (Percocet 5MG/325MG), 1 TABLET PO Q4H PRN for Pain Review of Systems Constitutional: No fever, No chills, No sweats, No weight loss, No weakness, No fatigue, No problem reported Abdomen: No pain, No nausea, No vomiting, No diarrhea, No constipation, No GI bleeding, No problem reported Genitourinary - Female: + vaginal bleeding (from draining hematoma and PP lochia), + vaginal itching (and irritation), No urinary frequency, No urinary urgency, No urinary incontinence, No urinary retention, No hematuria Psychiatric: No depression symptoms, No anhedonism, No anxiety, No insomnia, No substance abuse, No problem reported Physical Exam Vital Signs Date Time Temp Pulse Resp B/P (MAP) Pulse Ox O2 Delivery O2 Flow Rate FiO2 03/30/17 15:19 100 129/76 97 03/30/17 14:19 36.9 103 18 117/77 97 General Appearance: WD/WN, no apparent distress Genitourinary - Female: + pertinent finding (There is some swelling of the right labia, no erythema, slightly indurated. A Word catheter is coming from an opening in this area. It is sutured to the skin. On examination of the vagina, there is a [id number] fingerlike projection into the right posterior vaginal sidewall at about 7 o'clock. this is firm and not flucctuant. Slightly tender. The bulb of the Cather can be palpated. The Word catheter was removed by draining the water from the bulb and removing the sutures. The cavity was probed with a sterile Q-tip. Some brick red blood on q-tip but no purulent materila identified.) Neurologic/Psych: alert, normal mood/affect Impression Assessment and Plan Healing vulvar hematoma. Reassured that it is really looking good. No signs or symptoms of infection or reaccumulation of the hematoma. It feels like it is consolidating and will now be reabsorbed by her body. This may take several week.and the area may still feel swollen to her for that time. Will have the patient back in the office on Thursday for reevaluation. The s/s of infection reviewed with the patient. Another script for 20 percocet given to the patient in case she needs more. questions asked and answered. VTE Prophylaxis VTE Risk Assessment Done? Y/N: Yes Risk Level: Low Given or contraindicated: Treatment not indicated Social Service Consult None Apply
== END 2017-03-30 15:20 | disposition home or self-care (01) ==
LOC: C.EDB 14:18 → C.EDD 15:20
DX: O90.2 Hematoma of obstetric wound (principal); N90.89 Other specified noninflammatory disorders of vulva and perineum; Z87.891 Personal history of nicotine dependence; Z88.8 Allergy status to other drugs, medicaments and biological substances